=== PATIENT | female | born 1965 | race Caucasian/White ===

== ENCOUNTER 2016-08-04 18:56 | Emergency (ER) | payer OTHER ==
[~2016-08-04] VITALS: Ht 157.5 cm; Wt 52.2 kg
[~2016-08-04 18:56] MED LIST: ALPR2TAB2; HYDR-3326 PO; LORA2TAB95 PO; OXYC-128 PO
[2016-08-04] MEDS ORDERED: HYDROCODONE/APAP 5/325MG 1 EACH TABLET ONE (19:30)
[2016-08-04] MEDS: ALBUTEROL FS 2.5 MG/0.5 ML VIAL.NEB NEB ONE (19:34)
[2016-08-04] MEDS ORDERED: ALBUTEROL FS 2.5 MG/0.5 ML VIAL.NEB ONE (19:36)
[2016-08-04] MEDS: HYDROCODONE/APAP 5/325MG 1 EACH TABLET PO ONE (19:40)
[2016-08-04] MEDS ORDERED: ONDANSETRON HCL/PF 4 MG/2 ML VIAL ONE (19:44)
[2016-08-04 20:07] LABS: BASOPHILS # (AUTO) 0.1 /CMM (0.0-0.2); BASOPHILS % (AUTO) 0.8 % (0.0-2.0); DIFF TOTAL % 100 %; EOSINOPHILS # (AUTO) 0.2 /CMM (0.0-0.7); EOSINOPHILS % (AUTO) 2.3 % (0.0-6.0); HEMATOCRIT 37 % (33-45); HEMOGLOBIN 12.7 g/dL (11.5-14.8); LYMPHOCYTES # (AUTO) 2.9 /CMM (0.8-4.8); LYMPHOCYTES % (AUTO) 29.2 % (20.0-44.0); MEAN CORPUSCULAR HEMOGLOBIN 29 PG (26.0-33.0); MEAN CORPUSCULAR HGB CONC 34 g/dl (31.0-36.0); MEAN CORPUSCULAR VOLUME 85 fL (82-100); MONOCYTES # (AUTO) 0.6 /CMM (0.1-1.30); MONOCYTES % (AUTO) 6.3 % (2.0-12.0); NEUTROPHILS # (AUTO) 6.1 /CMM (1.8-8.9); NEUTROPHILS % (AUTO) 61.4 % (43.0-81.0); PLATELET COUNT (AUTO) 310 /CMM (150-450); RED BLOOD CELL COUNT(AUTO) 4.38 MIL/uL (4.0-5.2); WHITE BLOOD COUNT (AUTO) 9.9 K/uL (4.3-11.0)
[2016-08-04 20:20] LABS: ANION GAP 10 (5-14); CALCIUM, SERUM 8.4 mg/dL (8.5-10.1); CARBON DIOXIDE 29 mmol/L (21-32); CHLORIDE 105 mmol/L (98-107); CREATININE 0.8 mg/dL (0.6-1.3); GFR 76 mL/min (>60); GLUCOSE 75 mg/dL (74-106); POTASSIUM 3.4 mmol/L (3.5-5.1); SODIUM SERUM 141 mmol/L (136-145); UREA NITROGEN, BLOOD 13 mg/dL (7-18)
[2016-08-04 20:28] LABS: TROPONIN I < 0.017 ng/mL (0.00-0.056)
[2016-08-04 20:29] LABS: INR 1.06 (0.87-1.13); PROTHROMBIN TIME 11.1 SECS (9.5-12.7)
[2016-08-04 22:01] VITALS: BP 134/65
== END 2016-08-04 22:02 | disposition home or self-care (01) ==
LOC: ER 19:01
DX: R07.9 Chest pain, unspecified (principal); F17.200 Nicotine dependence, unspecified, uncomplicated; Z88.6 Allergy status to analgesic agent; Z88.8 Allergy status to other drugs, medicaments and biological substances
CPT/HCPCS: 36415; 71010; 80048; 84484; 85025; 85730; 93005; 94640; 99285; A4606; J2405; Z7610

== ENCOUNTER 2020-12-10 09:25 | Emergency (ER) | payer OTHER ==
[~2020-12-10] VITALS: Ht 157.5 cm; Wt 54.4 kg
[~2020-12-10 09:25] MED LIST changes: -HYDR-3326 PO; +HYDR-3974 PO
[2020-12-10 09:51] LABS: BASOPHILS % (AUTO) 0.6 % (0.0-2.0); EOSINOPHILS % (AUTO) 0.8 % (0.0-6.0); HEMATOCRIT 42 % (33-45); HEMOGLOBIN 14.1 g/dL (11.5-14.8); LYMPHOCYTES # (AUTO) 1.9 /CMM (0.8-4.8); LYMPHOCYTES % (AUTO) 21.6 % (20.0-44.0); MEAN CORPUSCULAR HGB CONC 33 g/dl (31.0-36.0); MEAN CORPUSCULAR VOLUME 88 fL (82-100); MONOCYTES # (AUTO) 0.4 /CMM (0.1-1.30); MONOCYTES % (AUTO) 4.2 % (2.0-12.0); NEUTROPHILS # (AUTO) 6.2 /CMM (1.8-8.9); NEUTROPHILS % (AUTO) 72.8 % (43.0-81.0); PLATELET COUNT (AUTO) 349 /CMM (150-450); RED BLOOD CELL COUNT(AUTO) 4.82 MIL/uL (4.0-5.2); WHITE BLOOD COUNT (AUTO) 8.6 K/uL (4.3-11.0)
[2020-12-10 09:59] LABS: CALCIUM, SERUM 9.3 mg/dL (8.5-10.1); CARBON DIOXIDE 28 mmol/L (21-32); CHLORIDE 106 mmol/L (98-107); CREATININE 0.7 mg/dL (0.6-1.3); GLUCOSE 104 mg/dL (74-106); POTASSIUM 3.8 mmol/L (3.5-5.1); SODIUM SERUM 141 mmol/L (136-145); UREA NITROGEN, BLOOD 12 mg/dL (7-18)
[2020-12-10] MEDS ORDERED: IV NS 0.9% 1,000 ML IV ONE (11:00)
[2020-12-10] MEDS ORDERED: ONDANSETRON HCL/PF 4 MG/2 ML VIAL IV ONE (11:00)
[2020-12-10] MEDS ORDERED: ACETAMINOPHEN 325 MG TABLET PO ONE (11:00)
[2020-12-10] MEDS ORDERED: ONDANSETRON HCL/PF 4 MG/2 ML VIAL ONE (11:09)
[2020-12-10] MEDS ORDERED: LORAZEPAM 1 MG TABLET PO ONE (11:30)
[2020-12-10] MEDS ORDERED: NALO4SPR NS (11:37)
[2020-12-10] MEDS ORDERED: ACETAMINOPHEN 325 MG TABLET ONE (11:45)
[2020-12-10] MEDS ORDERED: LORAZEPAM 0.5 MG TABLET ONE (11:45)
[2020-12-10] MEDS ORDERED: ONDA4TAB5 PO (12:00)
--- NOTE | 2020-12-10 12:23 | NUR ---
ASSUMED PT CARE. PT MARKED FOR DISCHARGE. AWAITING FOR [employer]N SHELLER.
--- NOTE | 2020-12-10 12:43 | NUR ---
PARADICHLOROBENZENE TENDER AT BEDSIDE.
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
--- NOTE | 2020-12-10 13:34 | NUR ---
Patient discharged to home in stable condition. Written and verbal after care instructions given. Patient verbalizes understanding of instruction.IV removed. Catheter intact and site benign. Pressure and 4x4 applied to site. No bleeding noted. Pt ambulatory with a steady gait
--- NOTE | 2020-12-10 13:34 | NUR ---
PT AWAITING HER RIDE.
[2020-12-10 13:48] VITALS: BP 118/72
== END 2020-12-10 13:49 | disposition home or self-care (01) ==
LOC: ER 09:28
DX: F11.23 Opioid dependence with withdrawal (principal); R07.89 Other chest pain; R11.2 Nausea with vomiting, unspecified; R00.1 Bradycardia, unspecified; G89.4 Chronic pain syndrome; F17.200 Nicotine dependence, unspecified, uncomplicated; Z88.6 Allergy status to analgesic agent; Z60.2 Problems related to living alone; Z79.899 Other long term (current) drug therapy
CPT/HCPCS: 36415; 71045; 80048; 84484; 85025; 93005; 96361; 96374; 99285; J2405; J7030

== ENCOUNTER 2021-05-31 04:53 | Emergency (ER) | payer OTHER ==
[~2021-05-31] VITALS: Ht 162.6 cm; Wt 47.6 kg
[~2021-05-31 04:53] MED LIST changes: +NALO4SPR NS; +ONDA4TAB5 PO
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
--- NOTE | 2021-05-31 07:07 | NUR ---
DISCHARGE INSTRUCTION GIVEN TO PT. PT STATES WILL WAIT FOR [employer] IN WAITING ROOM. PT LEFT IN STABLE CONDITION
[2021-05-31 07:08] VITALS: BP 110/71
[2021-05-31] MEDS ORDERED: IBUPROFEN 600 MG TABLET ONE (12:58)
== END 2021-05-31 07:07 | disposition home or self-care (01) ==
LOC: ER 05:01
DX: S09.90XA Unspecified injury of head, initial encounter (principal); G89.4 Chronic pain syndrome; F17.200 Nicotine dependence, unspecified, uncomplicated; Z88.6 Allergy status to analgesic agent; Z60.2 Problems related to living alone; Y08.89XA Assault by other specified means, initial encounter; Y93.89 Activity, other specified; Y92.89 Other specified places as the place of occurrence of the external cause; Y99.8 Other external cause status

== ENCOUNTER 2023-02-13 08:00 | Emergency (ER) | payer SELFPAY ==
[~2023-02-13] VITALS: Ht 160 cm; Wt 47.2 kg
[2023-02-13] MEDS ORDERED: ACET325T53 MC (08:19)
[2023-02-13 08:44] VITALS: BP 102/69; TEMP 98.5; O2SAT 97
== END 2023-02-13 08:44 | disposition home or self-care (01) ==
LOC: ER 08:09
DX: G89.29 Other chronic pain (principal); F17.200 Nicotine dependence, unspecified, uncomplicated; Z79.899 Other long term (current) drug therapy; Z60.2 Problems related to living alone; Z88.1 Allergy status to other antibiotic agents